=== PATIENT | female | born 1950 | race American Indian/Alaskan Native ===

== ENCOUNTER 2017-06-17 06:50 | Emergency (ER) | payer OTHER | END 2017-06-17 07:30 | disposition left against medical advice (07) | LOC: ED 06:50 | DX: R51 Headache (principal); Z53.21 Procedure and treatment not carried out due to patient leaving prior to being seen by health care provider ==

== ENCOUNTER 2018-09-18 12:51 | Outpatient (CLI) | payer OTHER ==
--- NOTE | 2018-09-18 15:31 | Mammography Report ---
LEFT DIGITAL DIAGNOSTIC MAMMOGRAM: 09/18/18 12:51:00 CLINICAL: For clip placement immediately status post stereotactic biopsy of calcifications. COMPARISON:Recent [facility] mammogram. FINDINGS: A biopsy clip is now identified approximately 6 cm from the nipple on the lateral view. Injected lidocaine and a small hematoma obscure the biopsy site. IMPRESSION: Concordant clip placement status post stereotactic biopsy. BI-RADS CATEGORY: 4--Suspicious Pathology pending.
--- NOTE | 2018-09-18 16:14 | Mammography Report ---
STEREOTACTIC VACUUM ASSISTED BIOPSY WITH CLIP PLACEMENT LEFT BREAST: 09/18/18 12:51:00 CLINICAL: Suspicious inner calcifications spanning approximately 7 cm. COMPARISON:[facility] mammogram from 08/13/18 FINDINGS: Consent for the procedure was obtained. I chose to sample a single target approximately 6 cm from the nipple since it appeared that there might not be adequate stroke margin by sampling closest to the nipple. The skin was prepped with Betadine and anesthetized with 1% lidocaine. 2% lidocaine with epinephrine was injected for deeper anesthesia. 8 gauge Mammotome biopsy was performed from a CC from below approach through a small dermatotomy. Prefire and post-fire images demonstrated satisfactory positioning of the probe. Samples were obtained around the clock face. A specimen radiograph confirmed satisfactory sampling with removal of screening representative calcifications. A clip was placed at the biopsy site and satisfactory deployment was confirmed with an image. There was minimal hemorrhage with the procedure.The probe was removed and hemostasis was achieved with minimal pressure. A sterile dressing with an Edmundo wrap bandage was applied. The patient tolerated the procedure well and there were no apparent complications. Two view mammogram demonstrated concordant position of the biopsy clip approximately 6 cm from the nipple. IMPRESSION: Uncomplicated stereotactic biopsy with clip placement left breast.
== END 2018-09-18 12:52 | disposition home or self-care (01) ==
LOC: SPVWC 12:51
PROVIDERS: ATTEND Internal Medicine
DX: D05.12 Intraductal carcinoma in situ of left breast (principal)
CPT/HCPCS: 19081; 77065; 88305; 88341; 88342; A4648